=== PATIENT | female | born 1935 | race African-American/Black ===

== ENCOUNTER 2017-07-12 08:59 | Emergency (ER) | payer BC ==
[~2017-07-12] VITALS: Ht 165.1 cm; Wt 75.0 kg
[~2017-07-12 08:59] MED LIST: DABI75CA3; DYR5; LOSA50TA3; NIFE30TA94 PO; [UNRECOGNIZED DRUG - REMARK]
[2017-07-12] MEDS ORDERED: ONDANSETRON HCL 4MG/2ML VIAL IV STA (09:58)
[2017-07-12] MEDS ORDERED: KETOROLAC 30MG/ML VIAL IV STA (09:58)
[2017-07-12] MEDS ORDERED: MORPHINE SULFATE 10 MG/ML CPJ IV ONE (10:00)
[2017-07-12 10:30] LABS: BASOPHILS % 0.3 % (0.0-2.0); HEMATOCRIT. 39.1 % (36.0-48.0); HEMOGLOBIN. 12.7 g/dL (12.0-16.0); LYMPHOCYTES % 8.4 % (20.0-50.0); MEAN CORPUSCULAR HEMOGLOBIN 27.9 pg (28.0-32.0); MEAN CORPUSCULAR VOLUME 86.1 fL (81.0-99.0); MEAN PLATELET VOLUME 9.8 fl (7.4-10.4); MONOCYTES % 7.5 % (2.0-8.0); NEUTROPHILS % 83.8 % (40.0-76.0); PLATELET 161 x1000/uL (130-400); RED BLOOD CELL COUNT 4.54 mill/uL (4.2-5.4)
[2017-07-12 10:45] LABS: CARBON DIOXIDE 28 mEq/L (21-32); CHLORIDE 95 mEq/L (98-107); CREATINE KINASE 420 IU/L (26-192); D-DIMER 2.46 mg/L FEU (<0.50); INR 1.2; PROTHROMBIN TIME 12.7 sec (9.4-11.6); TROPONIN I 0.03 ng/mL (0.00-0.04)
[2017-07-12] MEDS ORDERED: CLONIDINE 0.2MG TABLET PO ONE (12:30)
[2017-07-12 13:01] VITALS: BP 182/92
== END 2017-07-12 13:03 | disposition home or self-care (01) ==
LOC: ER 11:00
DX: M25.422 Effusion, left elbow (principal); M10.9 Gout, unspecified; R11.10 Vomiting, unspecified; I10 Essential (primary) hypertension; Z79.01 Long term (current) use of anticoagulants
CPT/HCPCS: 36415; 71010; 73080; 80053; 82550; 83605; 83880; 84484; 84550; 85025; 85379; 85610; 87040; 93005; 96374; 99285; J1885; J2405

== ENCOUNTER 2019-02-10 17:53 | Inpatient (IN) | payer BC ==
[~2019-02-10] VITALS: Ht 167.6 cm; Wt 79.4 kg
[2019-02-10] MEDS ORDERED: SODIUM CHLORIDE 0.9% 500 ML IV ONE (18:30)
[2019-02-10] MEDS ORDERED: DILTIAZEM HCL 5MG/ML 5ML VIAL IV ONE ×2 (18:45→20:00)
[2019-02-10] MEDS ORDERED: DILTIAZEM HCL 60MG TABLET PO ONE (18:45)
[2019-02-10 19:05] LABS: BASOPHILS % 0.5 % (0.0-2.0); HEMATOCRIT. 36.2 % (36.0-48.0); HEMOGLOBIN. 11.8 g/dL (12.0-16.0); LYMPHOCYTES % 13.3 % (20.0-50.0); MEAN CORPUSCULAR HEMOGLOBIN 27.9 pg (28.0-32.0); MEAN PLATELET VOLUME 10.2 fl (7.4-10.4); MONOCYTES % 7.8 % (2.0-8.0); NEUTROPHILS % 78.4 % (40.0-76.0); PLATELET 241 x1000/uL (130-400); RED BLOOD CELL COUNT 4.21 mill/uL (4.2-5.4); RED CELL DISTRIBUTION WIDTH 16.1 % (11.6-14.6)
[2019-02-10 19:08] LABS: CHLORIDE 105 mEq/L (98-107)
[2019-02-10] MEDS ORDERED: HYDRALAZINE 20MG/ML VIAL IV ONE (20:30)
[2019-02-10] MEDS ORDERED: FUROSEMIDE 20MG/2ML VIAL IVP ONE (21:15)
[2019-02-10 22:00] VITALS: BP 170/103
[2019-02-11] VITALS (11 sets, daily range): BP systolic 114–155; BP diastolic 62–118
[2019-02-11] MEDS ORDERED: CLONIDINE 0.1MG TABLET PO PRN
[2019-02-11] MEDS: TEMAZEPAM 15MG CAPSULE PO PRN (01:47)
[2019-02-11] MEDS: DILTIAZEM HCL 60MG TABLET PO SCH ×3 (05:25→22:00)
[2019-02-11 06:40] LABS: BASOPHILS % 0.5 % (0.0-2.0); EOSINOPHILS % 0.1 % (0.0-5.0); HEMATOCRIT. 31.1 % (36.0-48.0); HEMOGLOBIN. 10.2 g/dL (12.0-16.0); LYMPHOCYTES % 20.7 % (20.0-50.0); MEAN CORPUSCULAR HEMOGLOBIN 27.9 pg (28.0-32.0); MEAN CORPUSCULAR VOLUME 85.4 fL (81.0-99.0); MEAN PLATELET VOLUME 10.5 fl (7.4-10.4); MONOCYTES % 11.5 % (2.0-8.0); NEUTROPHILS % 67.2 % (40.0-76.0); PLATELET 199 x1000/uL (130-400); RED BLOOD CELL COUNT 3.64 mill/uL (4.2-5.4)
[2019-02-11 06:56] LABS: CHLORIDE 108 mEq/L (98-107)
[2019-02-11 07:16] LABS: LDL CHOLESTEROL 54 mg/dL (5-100)
[2019-02-11 07:17] LABS: CREATINE KINASE 83 IU/L (26-192); HDL CHOLESTEROL 44 mg/dL (40-59); T4 FREE 1.14 ng/dL (0.76-1.46)
[2019-02-11 07:21] LABS: CREATINE KINASE MB FRACTION < 1.0 ng/mL (0.5-3.6)
[2019-02-11] MEDS ORDERED: PNEUMOCOCCAL 23-VAL P-SAC VAC 0.5 ML IM ONE (08:00)
[2019-02-11] MEDS ORDERED: FUROSEMIDE 40MG TABLET PO SCH (09:00)
[2019-02-11] MEDS ORDERED: NIFEDIPINE 10MG CAPSULE PO SCH (09:00)
[2019-02-11] MEDS: POTASSIUM CHLORIDE 20MEQ TABLET SR PO SCH (09:09)
[2019-02-11] MEDS: ASPIRIN 81MG TABLET PO SCH (09:09)
[2019-02-11] MEDS: LOSARTAN POTASSIUM 50 MG TABLET PO SCH (09:09)
[2019-02-11] MEDS: MEMANTINE HCL 5MG TABLET PO SCH ×2 (09:09→22:23)
[2019-02-11] MEDS: FUROSEMIDE 40MG/4ML VIAL IVP SCH (16:18)
[2019-02-11 16:24] LABS: INR 1.3; PROTHROMBIN TIME 13.3 sec (9.6-11.0)
[2019-02-11 16:34] LABS: CREATINE KINASE MB FRACTION 1.4 ng/mL (0.5-3.6)
[2019-02-11 23:19] LABS: CREATINE KINASE MB FRACTION 1.2 ng/mL (0.5-3.6)
[2019-02-12] VITALS (13 sets, daily range): BP systolic 114–154; BP diastolic 52–93
[2019-02-12] MEDS: TEMAZEPAM 15MG CAPSULE PO PRN ×2 (03:59→21:06)
[2019-02-12] MEDS: DILTIAZEM HCL 60MG TABLET PO SCH ×3 (05:02→21:06)
[2019-02-12] MEDS: FUROSEMIDE 40MG/4ML VIAL IVP SCH ×2 (06:43→17:07)
[2019-02-12 07:09] LABS: HEMATOCRIT 32.4 % (36.0-48.0); HEMOGLOBIN 10.7 g/dL (12.0-16.0); MEAN CORPUSCULAR HEMOGLOBIN 28.3 pg (28.0-32.0); MEAN CORPUSCULAR VOLUME 85.6 fL (81.0-99.0); PLATELET 183 x1000/uL (130-400); RED BLOOD CELL COUNT 3.78 mill/uL (4.2-5.4); RED CELL DISTRIBUTION WIDTH 15.9 % (11.6-14.6)
[2019-02-12] MEDS: LOSARTAN POTASSIUM 50 MG TABLET PO SCH (09:02)
[2019-02-12] MEDS: POTASSIUM CHLORIDE 20MEQ TABLET SR PO SCH ×2 (09:02→17:07)
[2019-02-12] MEDS: ASPIRIN 81MG TABLET PO SCH (09:03)
[2019-02-12] MEDS: MEMANTINE HCL 5MG TABLET PO SCH ×2 (09:03→21:05)
[2019-02-12] MEDS ORDERED: POTASSIUM CHLORIDE 20MEQ TABLET SR PO SCH (12:00)
[2019-02-13] VITALS (7 sets, daily range): BP systolic 127–140; BP diastolic 47–81
[2019-02-13] MEDS: DILTIAZEM HCL 60MG TABLET PO SCH ×3 (05:45→22:07)
[2019-02-13] MEDS: FUROSEMIDE 40MG/4ML VIAL IVP SCH ×2 (06:34→18:17)
[2019-02-13 07:04] LABS: CHLORIDE 99 mEq/L (98-107)
[2019-02-13 07:07] LABS: BASOPHILS % 0.3 % (0.0-2.0); HEMATOCRIT. 36.2 % (36.0-48.0); HEMOGLOBIN. 11.6 g/dL (12.0-16.0); LYMPHOCYTES % 28.1 % (20.0-50.0); MEAN CORPUSCULAR HEMOGLOBIN 27.3 pg (28.0-32.0); MEAN CORPUSCULAR VOLUME 84.9 fL (81.0-99.0); MEAN PLATELET VOLUME 10.2 fl (7.4-10.4); MONOCYTES % 12.2 % (2.0-8.0); NEUTROPHILS % 58.4 % (40.0-76.0); PLATELET 209 x1000/uL (130-400); RED BLOOD CELL COUNT 4.26 mill/uL (4.2-5.4); RED CELL DISTRIBUTION WIDTH 16.2 % (11.6-14.6)
[2019-02-13 07:13] LABS: LDL CHOLESTEROL 76 mg/dL (5-100)
[2019-02-13 07:16] LABS: HDL CHOLESTEROL 46 mg/dL (40-59)
[2019-02-13] MEDS: ASPIRIN 81MG TABLET PO SCH (08:41)
[2019-02-13] MEDS: MEMANTINE HCL 5MG TABLET PO SCH ×2 (08:41→20:58)
[2019-02-13] MEDS: LOSARTAN POTASSIUM 50 MG TABLET PO SCH (08:41)
[2019-02-13] MEDS: POTASSIUM CHLORIDE 20MEQ TABLET SR PO SCH ×2 (08:41→18:17)
[2019-02-13] MEDS ORDERED: TEMAZEPAM 15MG CAPSULE PO PRN (12:45)
[2019-02-13] MEDS ORDERED: MAGNESIUM 1 G PREMIX 100 ML IV NR (13:00)
[2019-02-13] MEDS: ENOXAPARIN 40MG/0.4ML SYR SUBCUT SCH (14:04)
[2019-02-13] MEDS ORDERED: POTASSIUM CHLORIDE 20MEQ/PACKET PO NR (18:00)
[2019-02-13] MEDS ORDERED: MAGNESIUM 2 G PREMIX 50 ML IV NR (20:00)
[2019-02-13] MEDS ORDERED: ACETAMINOPHEN 325MG TABLET PO PRN (21:30)
[2019-02-13] MEDS: PIPERACILLIN/TAZ 2.25G PREMIX 50 ML IV SCH (23:34)
[2019-02-14] VITALS (7 sets, daily range): BP systolic 101–121; BP diastolic 37–81
[2019-02-14] MEDS ORDERED: PIPERACILLIN/TAZOBACTAM 3.375GM/50ML PREMIX IV SCH
[2019-02-14] MEDS: PIPERACILLIN/TAZ 2.25G PREMIX 50 ML IV SCH ×2 (06:17→13:15)
[2019-02-14] MEDS: FUROSEMIDE 40MG/4ML VIAL IVP SCH ×2 (06:17→16:57)
[2019-02-14] MEDS: DILTIAZEM HCL 60MG TABLET PO SCH ×2 (06:18→14:00)
[2019-02-14 06:53] LABS: BASOPHILS % 0.3 % (0.0-2.0); EOSINOPHILS % 0.2 % (0.0-5.0); HEMATOCRIT. 35.8 % (36.0-48.0); LYMPHOCYTES % 20.8 % (20.0-50.0); MEAN CORPUSCULAR VOLUME 83.8 fL (81.0-99.0); MEAN PLATELET VOLUME 9.6 fl (7.4-10.4); MONOCYTES % 14.1 % (2.0-8.0); NEUTROPHILS % 64.6 % (40.0-76.0); PLATELET 193 x1000/uL (130-400); RED BLOOD CELL COUNT 4.28 mill/uL (4.2-5.4); RED CELL DISTRIBUTION WIDTH 15.6 % (11.6-14.6)
[2019-02-14 08:41] LABS: CLARITY URINE CLEAR (CLEAR); COLOR URINE YELLOW (YELLOW); KETONES URINE NEGATIVE (NEGATIVE); LEUKOCYTE ESTERASE URINE NEGATIVE (NEGATIVE); NITRITE URINE NEGATIVE (NEGATIVE); OCCULT BLOOD URINE NEGATIVE (NEGATIVE); PH URINE 6.5 (4.5-8.0); PROTEIN URINE NEGATIVE (NEGATIVE); UROBILINOGEN URINE 0.2 E.U./dL (0.2-1.0)
[2019-02-14] MEDS: POTASSIUM CHLORIDE 20MEQ TABLET SR PO SCH ×2 (09:15→16:57)
[2019-02-14] MEDS: MEMANTINE HCL 5MG TABLET PO SCH (09:15)
[2019-02-14] MEDS: LOSARTAN POTASSIUM 50 MG TABLET PO SCH (09:15)
[2019-02-14] MEDS: ASPIRIN 81MG TABLET PO SCH (09:16)
[2019-02-14] MEDS: ENOXAPARIN 40MG/0.4ML SYR SUBCUT SCH (13:16)
[2019-02-14] MEDS ORDERED: LEVOFLOXACIN 500MG PREMIX 100 ML IV SCH (14:00)
[2019-02-14] MEDS ORDERED: TEMAZEPAM 15MG CAPSULE PO PRN (21:00)
[2019-02-15] MEDS ORDERED: ENOXAPARIN 30MG/0.3ML SYR SUBCUT SCH (09:00)
[2019-02-15] MEDS ORDERED: LEVOFLOXACIN 250MG PREMIX 50 ML IV SCH (14:00)
== END 2019-02-14 20:40 | DRG 73 ==
LOC: ER 17:53 → 5EST 20:25 → EDBEDREQTM 20:41 → EDBEDREQ 20:41 → ENRESERV 21:09 → 8WST 02-12 17:31
PROVIDERS: ADMIT Internal Medicine; ATTEND Internal Medicine
DX: G90.8 Other disorders of autonomic nervous system (principal); I50.43 Acute on chronic combined systolic (congestive) and diastolic (congestive) heart failure; G93.40 Encephalopathy, unspecified; I31.3 Pericardial effusion (noninflammatory); D68.59 Other primary thrombophilia; I48.91 Unspecified atrial fibrillation; I11.0 Hypertensive heart disease with heart failure; F03.90 Unspecified dementia, unspecified severity, without behavioral disturbance, psychotic disturbance, mood disturbance, and anxiety; E87.6 Hypokalemia; D64.9 Anemia, unspecified; I27.20 Pulmonary hypertension, unspecified; E83.42 Hypomagnesemia; I34.0 Nonrheumatic mitral (valve) insufficiency; W18.30XA Fall on same level, unspecified, initial encounter; R26.9 Unspecified abnormalities of gait and mobility; R73.9 Hyperglycemia, unspecified; Z86.73 Personal history of transient ischemic attack (TIA), and cerebral infarction without residual deficits; Z91.81 History of falling; Y93.89 Activity, other specified; Y92.89 Other specified places as the place of occurrence of the external cause; Y99.8 Other external cause status; Z79.899 Other long term (current) drug therapy; Z79.01 Long term (current) use of anticoagulants
CPT/HCPCS: 36415; 71045; 72170; 74176; 80048; 80061; 82550; 82553; 83735; 83880; 84439; 84443; 84484; 85027; 90732; 93005; 93306; 93880; 93970; 96374; 97162; 97166; 99291; J1650; J1940; J1956; J2543; J3475; J7040; J7050